=== PATIENT | male | born 1985 | race Caucasian/White ===

== ENCOUNTER 2018-07-19 11:00 | Emergency (ER) | payer SELFPAY ==
[~2018-07-19] VITALS: Ht 170.2 cm; Wt 84.0 kg
[2018-07-19 11:08] VITALS: BP 142/65; PULSE 74; RESP 18; Ht 170.2 cm; Wt 84.0 kg
[2018-07-19] MEDS ORDERED: IBUP-1545 PO (13:01)
[2018-07-19] MEDS ORDERED: PSEU120T12 PO (13:01)
--- NOTE | 2018-07-19 13:03 | ERD ---
ER Documentation Chief Complaint Chief Complaint pt is bib family with c/o left ear and head pain with pressure x 2 days HPI 32-year-old male is here with left-sided ear pain and head pressure for 2 days. He also states he has had decreased hearing in that ear for over a year now. He thinks it may be secondary to using a jackhammer at work. No bleeding or drainage from the ear. No fever or recent illness. ROS All systems reviewed and are negative except as per history of present illness. Medications Home Meds Active Scripts Ibuprofen* (Ibuprofen*) 800 Mg Tab, 800 MG PO Q6H PRN for PAIN, #30 TAB Prov:BONI GIRALDO PA-C 07/19/18 Pseudoephedrine Hcl (Sudafed 12 Hour) 120 Mg Tablet.sa, 120 MG PO Q8, #30 Prov:BONI GIRALDO PA-C 07/19/18 Allergies Allergies: Coded Allergies: No Known Allergy (Unverified , 07/19/18) PMhx/Soc Medical and Surgical Hx: pt denies Medical Hx, pt denies Surgical Hx Hx Alcohol Use: No Hx Substance Use: No Hx Tobacco Use: No Smoking Status: Never smoker FmHx Family History: No diabetes Physical Exam Vitals Vital Signs Date Temp Pulse Resp B/P (MAP) Pulse Ox O2 O2 Flow FiO2 Time Delivery Rate 07/19/18 98.3 74 18 142/65 96 11:08 (90) Physical Exam INITIAL VITAL SIGNS: Reviewed by me GENERAL: Awake, alert and oriented x 4, well appearing, nontoxic, speaking in full sentences. No acute distress HEAD: Atraumatic NECK: Supple. No masses. Full range of motion. No meningismus. No midline tenderness. EYES: EOMI. PERRL. EAR: No tenderness over the mastoids bilaterally. No exudates in the canals. TMs nonerythematous. RESPIRATORY: Clear to auscultation bilaterally. Symmetric chest wall rise. No wheezing or rales. No accessory muscle use. CV: Regular rate and rhythm. No murmurs, rubs, or gallops. Procedures/MDM Patient has earache and decreased hearing. Exam is normal. Prescription for Sudafed and ibuprofen given. Follow-up with primary care for possible outpatient referral to ENT. Patient counseled regarding my diagnostic impression and care plan. Prior to discharge all questions answered. Pt agrees with treatment plan and understands strict return precautions. Pt is instructed to follow up with primary care provider within 24-48 hours. Precautionary instructions provided including instructions to return to the ER if not improving or for any worsening or changing symptoms or concerns. Departure Diagnosis: Primary Impression: Left ear pain Condition: Stable Patient Instructions: Earache W/O Infection (Adult) Additional Instructions: Llame al doctor MAJAMEY y sherley mabel LUCIAN PARA DENTRO DE 1-2 SAAVEDRA.Dgale a la secretaria que nosotros le instruimos hacer esta lucian.Avise o llame si arita condicin se empeora antes de la lucian. Regresa aqui si peor o no mejor. BONI GIRALDO PA-C Jul 19, 2018 13:03
== END 2018-07-19 13:17 | disposition home or self-care (01) ==
LOC: FTE 11:00
DX: H92.02 Otalgia, left ear (principal)
CPT/HCPCS: 99282